=== PATIENT | male | born 2000 | race Two or more races ===

== ENCOUNTER 2022-08-26 08:28 | Emergency (ER) | payer OTHER ==
[2022-08-26] MEDS ORDERED: Sodium Chloride 0.9% 1,000 ML IV ONE ×2 (09:17→10:25)
[2022-08-26] MEDS ORDERED: Ondansetron 4 MG/2 ML SDV IVPUSH ONE ×2 (09:25→10:18)
[2022-08-26 09:59] LABS: ANION GAP 13.9 mEq/L (7-13)
[2022-08-26] MEDS ORDERED: Iopamidol 612 MG/ML 100 ML Bottle IVPUSH ONE (10:26)
[2022-08-26] MEDS ORDERED: HYDROmorphone 1 MG/ML Syringe IVPUSH ONE ×2 (10:29→12:44)
[2022-08-26 10:37] LABS: AMPHETAMINES,URINE NEGATIVE (NEGATIVE); BARBITURATES,URINE NEGATIVE (NEGATIVE); BENZODIAZEPINE,URINE NEGATIVE (NEGATIVE); MDMA (ECSTASY), URINE NEGATIVE (NEGATIVE); METHADONE,URINE NEGATIVE (NEGATIVE); METHAMPHETAMINES,URINE NEGATIVE (NEGATIVE); OPIATES,URINE NEGATIVE (NEGATIVE); OXYCODONE,URINE NEGATIVE (NEGATIVE); PHENCYCLIDINE,URINE NEGATIVE (NEGATIVE); TCA,URINE NEGATIVE (NEGATIVE)
[2022-08-26] MEDS ORDERED: Piperacillin/Tazobactam 3.375 GM in Sodium Chloride 0.9% 100 ML IV ONE (11:21)
[2022-08-26] MEDS ORDERED: Metoclopramide 10 MG/2 ML SDV IVPUSH ONE (12:14)
[2022-08-26] MEDS ORDERED: Lactated Ringers 1,000 ML IV ONE (12:43)
== END 2022-08-26 13:00 ==
LOC: DL.ED 08:28
DX: K35.30 Acute appendicitis with localized peritonitis, without perforation or gangrene (principal); E11.65 Type 2 diabetes mellitus with hyperglycemia
CPT/HCPCS: 36415; 74177; 80053; 80305-QW; 81003; 82009; 82150; 82272; 82947; 83605; 83690; 85025; 86140; 87081; 87430; 96361; 96365; 96375; 96376; 99284; 99285-25; J1170; J2405; J2543; J2765; J7030; J7050; J7120; Q9967